=== PATIENT | female | born 1935 | race African-American/Black ===

== ENCOUNTER 2016-02-27 07:48 | Inpatient (IN) | payer OTHER ==
[2016-02-27] MEDS ORDERED: DUONEB (A & A) INH ONE (08:00)
[2016-02-27] MEDS ORDERED: SOLU-MEDROL IV ONE (08:00)
[2016-02-27 08:17] LABS: ALLEN TEST YES; BE -2.6 mmoll (-3.0-3.0); BLOOD TYPE ARTERIAL; DRAW SITE L RADIAL; METHB 1.2 % (0.0-1.5); O2(CT) 12.9 mL/dL (15.0-23.0); PCO2(98.6) 47 mmHg (35-45); PO2(98.6) 70 mmHg (60-100); SAMPLE BLOOD; SAO2 96.7 % (95.0-100.0); THB 9.8 g/dL (11.5-17.4); pH(98.6) 7.31 (7.35-7.45)
[2016-02-27 08:18] LABS: MODALITY ROOM AIR
--- NOTE | 2016-02-27 08:31 | PROVIDER DOCUMENTATION ---
HPI-Respiratory General - General Source: patient, EMS - History of Present Illness-Resp Quality of Pain: reports: none Severity in ED: reports: moderate Onset/Duration: reports: 3 days ago Timing: reports: still present, improving Context: reports: recent URI. denies: recent foreign travel, insect bite ( possible tick), recent chemotherapy, out of meds, sports/exercise, aspiration/ choking Exposure: reports: unknown cause. denies: allergen exposure Cough Quality/Degree: reports: moderate Episode Frequency: chronic episodes Current Respiratory Medication Therapy: Initiated A/A nebulizer Modifying Factors: improves with: albuterol nebulizer Associated Symptoms: reports: cough, shortness of breath, short of breath. denies: facial pain, fever/chills, flu-like symptoms, headache, sore throat Similar Symptoms Previously?: Yes Recently seen or treated by another doctor?: No <Janice Rodriguez - Last Filed: 02/27/16 08:25> <Luisa Loving - Last Filed: 02/27/16 10:49> - General Chief Complaint: Shortness of Breath Stated Complaint: SOB Time Seen by Provider: 02/27/16 07:48 Allergies/Adverse Reactions: Patient Allergies Allergy/AdvReac Type Severity Reaction Status Date / Time No Known Allergies Allergy Verified 02/14/16 11:13 Home Medications: Clonidine [Catapres] 0.1 mg PO BID 05/14/14 Escitalopram Oxalate 10 mg PO DAILY 05/14/14 Ipratropium/Albuterol Sulfate [Iprat-Albut 0.5-3(2.5) mg/3 ml] 1 dose INH 4XDAY PRN 05/14/14 Levothyroxine Sodium 88 mcg PO DAILY@0700 05/14/14 Cyanocobalamin (Vitamin B-12) [Vitamin B-12] 1,000 mcg PO DAILY 08/27/14 Folic Acid 1 mg PO QAM 08/27/14 Gabapentin 300 mg PO HS 08/27/14 Mesalamine D.r. [Asacol Hd] 800 mg PO TID@0900,1500,2100 08/27/14 SIMVAstatin [Zocor] 40 mg PO QHS 08/27/14 Metformin E.r. [Glucophage Xr] 500 mg PO DAILY@0800 04/06/15 Doxepin HCl [Silenor] 6 mg PO HS 07/28/15 Hydrocodone/Acetaminophen [Buford 10-325 Tablet] 1 tab PO TID PRN PRN 07/29/15 Hydrocortisone 2.5% Cream [Anusol-Hc Cream] 1 applic MI BID PRN 07/29/15 Tiotropium Rolla Inhaler [Spiriva] 18 mcg INH DAILY 07/29/15 Magnesium Oxide 500 mg PO DAILY 11/23/15 - History of Present Illness-Resp Nature of Presenting Problem: Pt reports SOB every morning recently, worsened this morning. Denies CP/F/C, but dry cough and wheezing. H/o COPD/CHF/CAD with stent X1 back to 6 years ago. DMII on insulin and a stroke paralyzed her R leg, pt has been bed-ridden. Per EMS, pt's SO2=99% on RA on their arrival, but she looks like was struggling form her breath. Breathing tx en route made her felt a lot better. (Janice Rodriguez) Review of Systems - Adult - REVIEW OF SYSTEMS - ADULT Constitutional: reports: no symptoms reported Eyes: reports: no symptoms reported Ears, Nose, Mouth & Throat: reports: no symptoms reported Cardiovascular: reports: see HPI, palpitations. denies: chest pain, heart murmur, irregular heart rate, orthopnea Respiratory: reports: see HPI, cough, dyspnea on exertion, shortness of breath, wheezing. denies: hemoptysis Gastrointestinal: reports: no symptoms reported Genitourinary: reports: no symptoms reported Musculoskeletal: reports: no symptoms reported Integumentary: reports: no symptoms reported Neurological: reports: no symptoms reported Psychiatric: reports: no symptoms reported All Other Systems: Reviewed and Negative <Janice Rodriguez - Last Filed: 02/27/16 08:25> Past History - Adult - PAST MEDICAL HISTORY-ADULT Major Childhood Illnesses: reports: denies history Cardiovascular: reports: CAD, CHF (last ECHO 08/10 with EF 55%), HTN, [place] Respiratory: reports: asthma, COPD, sleep apnea Gastrointestinal: reports: colitis (ulcerative), inflammatory bowel disease Obstetrical/Gynecological: reports: denies history Genitourinary: reports: denies history Musculoskeletal: reports: denies history Neurological: reports: CVA (right sided), stroke deficits (RIGHT SIDED) Psychiatric: reports: psychiatric problems Endocrine/Immune: reports: thyroid disorder, Diabetes Other Conditions: reports: cataract/glaucoma - PRIOR SURGERIES/PROCEDURES Surgical/Procedure History: reports: cardiac stent, hysterectomy, orthopedic ( extremity) (total knee replacement), other (breast biopsy, cataracts) - IMMUNIZATION STATUS Childhood Immunizations: See Nurse Assessment Flu Vaccine: See Nurse Assessment - FAMILY HISTORY Family History: reviewed, not pertinent <RodriguezJanice X - Last Filed: 02/27/16 08:25> Physical Exam-General - PHYSICAL EXAM-ADULT Initial Vital Signs Reviewed: Yes - CONSTITUTIONAL General Appearance: appears well, alert, no apparent distress - EYES Eyes: PERRL/EOMI, pink conjunctivae - HEAD, EARS, NOSE, MOUTH & THROAT HENMT: normocephalic/atraumatic, moist mucous membranes - NECK Neck: non-tender, full range of motion - RESPIRATORY Respiratory: chest non-tender, lungs clear, normal breath sounds, no pleuratic chest pain, decreased breath sounds, rhonchi, wheezing. negative: no respiratory distress, no accessory muscle use, accessory muscle use, crackles, rales, retractions, splinting, decreased rate - CARDIOVASCULAR Cardiovascular: normal peripheral pulses, regular rate, rhythm, no edema, no gallop, no JVD - GASTROINTESTINAL (ABDOMEN) Abdominal Exam: normal bowel sounds, non tender, soft, no organomegaly, no pulsatile mass - MUSCULOSKELETAL Back Exam: normal inspection, no CVA tenderness, no vertebral tenderness Extremity: normal range of motion, non-tender, normal gait, normal inspection - SKIN Integumentary: normal color, normal turgor, warm/dry - NEUROLOGIC Neurologic: other (R leg paralyzed from previous stroke) - PSYCHIATRIC Psych/Mental Status: normal mood/affect, normal thought content, normal thought process, oriented x 3 <Neil Rodriguezarielle X - Last Filed: 02/27/16 08:25> Progress <RodriguezJanice X - Last Filed: 02/27/16 08:25> - XRAY 1 XRAY Study: Chest XRAY Interpretation: normal - CONSULTS/PCP/HOSPITALIST Notification #1 *Consult/PCP/Hospitalist*: Dr. Romero Time Discussed: 10:46 Consult Disposition: Admit <Luisa Loving - Last Filed: 02/27/16 10:49> - PLAN OF CARE/RESULTS Progress/Plan/Lab Results: plan of care: labs, imaging, admit as inpatient Laboratory Tests 02/27/16 02/27/16 02/27/16 08:07 08:58 09:35 WBC 12.39 H RBC 3.96 L Hgb 10.1 L Hct 31.8 L MCV 80.3 L MCH 25.5 L MCHC 31.8 L RDW Std Deviation 15.2 H Plt Count 241 MPV 9.4 Immature Gran % (Auto) 0.2 Neut % (Auto) 76.9 H Lymph % (Auto) 12.9 L [place] % (Auto) 5.8 Eos % (Auto) 4.0 Baso % (Auto) 0.2 Immature Gran # (Auto) 0.02 Neut # 9.52 H Lymph # 1.60 [place] # 0.72 H Eos # 0.50 Baso # 0.03 PT INR PTT (Actin FS) Specimen Type ARTERIAL Sample Site L RADIAL pH 7.31 L pCO2 47 H pO2 70 HCO3 22.8 Base Excess -2.6 Oxyhemoglobin 93.4 L ABG O2 Sat (Calculated) 12.9 L ABG O2 Saturation 96.7 ABG Carboxyhemoglobin 2.20 ABG Methemoglobin 1.2 Brendan Test YES A-a O2 Difference 21.0 Total Hemoglobin 9.8 L Lactate 2.10 Blood Gas Modality ROOM AIR FiO2 % 21.0 Sodium Potassium Chloride Carbon Dioxide Anion Gap BUN Creatinine Estimated GFR/1.73 m2 BUN/Creatinine Ratio Glucose Calculated Osmolality Calcium Magnesium Total Bilirubin AST ALT Alkaline Phosphatase Creatine Kinase Troponin T [id number]-Gbgyxiwduvd Pept Total Protein Albumin Globulin Albumin/Globulin Ratio Urine Source CATH Urine Color YELLOW Urine Turbidity CLEAR Urine pH 5.5 Ur Specific [place] 1.018 Urine Protein 50 A Ur Glucose (Stick) NEGATIVE Ur Ketones (Stick) NEGATIVE Urine Blood NEGATIVE Urine Nitrite NEGATIVE Urine Bilirubin NEGATIVE Urobilinogen Dipstick NORMAL Urine Leukocytes NEGATIVE Urine WBC (Auto) <10 Urine RBC (Auto) <10 U Epithel Cells (Auto) <10 Urine Bacteria (Auto) 1+ 02/27/16 02/27/16 02/27/16 09:35 09:35 09:35 WBC RBC Hgb Hct MCV MCH MCHC RDW Std Deviation Plt Count MPV Immature Gran % (Auto) Neut % (Auto) Lymph % (Auto) [place] % (Auto) Eos % (Auto) Baso % (Auto) Immature Gran # (Auto) Neut # Lymph # [place] # Eos # Baso # PT 10.3 INR 0.97 PTT (Actin FS) 25.9 Specimen Type Sample Site pH pCO2 pO2 HCO3 Base Excess Oxyhemoglobin ABG O2 Sat (Calculated) ABG O2 Saturation ABG Carboxyhemoglobin ABG Methemoglobin Brendan Test A-a O2 Difference Total Hemoglobin Lactate Blood Gas Modality FiO2 % Sodium 135 L Potassium 5.3 H Chloride 99 Carbon Dioxide 22 L Anion Gap 14 BUN 32 H Creatinine 2.0 H Estimated GFR/1.73 m2 29 BUN/Creatinine Ratio 16 Glucose 172 H Calculated Osmolality 281 Calcium 9.2 Magnesium 2.1 Total Bilirubin 0.19 L AST 15 ALT 6 L Alkaline Phosphatase 81 Creatine Kinase 68 Troponin T Jli-M-Fquecoyrwsn Pept 371 Total Protein 7.3 Albumin 3.4 L Globulin 3.9 Albumin/Globulin Ratio 0.9 Urine Source Urine Color Urine Turbidity Urine pH Ur Specific [place] Urine Protein Ur Glucose (Stick) Ur Ketones (Stick) Urine Blood Urine Nitrite Urine Bilirubin Urobilinogen Dipstick Urine Leukocytes Urine WBC (Auto) Urine RBC (Auto) U Epithel Cells (Auto) Urine Bacteria (Auto) 02/27/16 09:35 WBC RBC Hgb Hct MCV MCH MCHC RDW Std Deviation Plt Count MPV Immature Gran % (Auto) Neut % (Auto) Lymph % (Auto) [place] % (Auto) Eos % (Auto) Baso % (Auto) Immature Gran # (Auto) Neut # Lymph # [place] # Eos # Baso # PT INR PTT (Actin FS) Specimen Type Sample Site pH pCO2 pO2 HCO3 Base Excess Oxyhemoglobin ABG O2 Sat (Calculated) ABG O2 Saturation ABG Carboxyhemoglobin ABG Methemoglobin Brendan Test A-a O2 Difference Total Hemoglobin Lactate Blood Gas Modality FiO2 % Sodium Potassium Chloride Carbon Dioxide Anion Gap BUN Creatinine Estimated GFR/1.73 m2 BUN/Creatinine Ratio Glucose Calculated Osmolality Calcium Magnesium Total Bilirubin AST ALT Alkaline Phosphatase Creatine Kinase Troponin T 0.082 Pcj-F-Ohyujdmqani Pept Total Protein Albumin Globulin Albumin/Globulin Ratio Urine Source Urine Color Urine Turbidity Urine pH Ur Specific [place] Urine Protein Ur Glucose (Stick) Ur Ketones (Stick) Urine Blood Urine Nitrite Urine Bilirubin Urobilinogen Dipstick Urine Leukocytes Urine WBC (Auto) Urine RBC (Auto) U Epithel Cells (Auto) Urine Bacteria (Auto) Orders Category Date Time Status Cardiac Monitoring DIRECTED Care 02/27/16 08:01 Active [place] Cath Insertion ORDERED Care 02/27/16 09:15 Active Saline Loc NOW Care 02/27/16 08:01 Active CHEST-PORTABLE [RAD] Stat Exams 02/27/16 08:00 Taken ABG [RESP] Routine Lab 02/27/16 08:07 Completed BLOOD CULTURE [BLDCUL] Stat Lab 02/27/16 09:35 Received CBC WITH ELECTRONIC DIFF [HEME] Stat Lab 02/27/16 09:35 Completed CK PROFILE [SP CHEM] Stat Lab 02/27/16 09:35 Completed COMPREHENSIVE METABOLIC PANEL [CHEM] Stat Lab 02/27/16 09:35 Completed MAGNESIUM [CHEM] Stat Lab 02/27/16 09:35 Completed PRO B-NATRIURETIC PEPTIDE Stat Lab 02/27/16 09:35 Completed PROTIME WITH INR [COAG] Stat Lab 02/27/16 09:35 Completed PTT [COAG] Stat Lab 02/27/16 09:35 Completed TROPONIN T Stat Lab 02/27/16 09:35 Completed UA NIMS W/REFLEX CULT [URINALYSIS] Stat Lab 02/27/16 08:58 Completed 0.9% Sodium Chloride Inj [Ns] 1,000 ml Med 02/27/16 10:43 Active IV 500 mls/hr Albuterol 2.5MG/Ipratrop 0.5MG [Duoneb (A & A)] Med 02/27/16 08:00 Discontinued 3 ml INH NOW ONE Methylprednisolone Sod Succ [Solu-Medrol] Med 02/27/16 08:00 Discontinued 125 mg IV NOW ONE Aerosol Treatments Routine Oth 02/27/16 08:02 Completed Aerosol Treatments Stat Oth 02/27/16 08:02 Completed EKG [EKG] Stat Ther 02/27/16 08:01 Ordered Vital Signs - 24 hr 02/27/16 02/27/16 07:59 08:16 Temperature 97.6 F Pulse Rate 102 H 103 H Respiratory 24 18 Rate Blood Pressure 134/81 O2 Sat by Pulse 100 95 Oximetry (Luisa Loving) Departure <Janice Rodriguez - Last Filed: 02/27/16 08:25> - Departure Time of Disposition Order: 10:44 Certified Medical Emergency: Emergent <Luisa Loving - Last Filed: 02/27/16 10:49> - Departure DIAGNOSIS: COPD with acute exacerbation, Hyperglycemia, Renal failure Disposition: ADMITTED INPATIENT 09 Condition: Stable Referrals: Ramo Mann MD [Primary Care Provider] - Physician Attestation
[2016-02-27 09:11] LABS: URINE CULTURE NEEDED? NO; URINE MICRO REVIEW NEEDED? NO; URINE SOURCE CATH
[2016-02-27 09:15] LABS: BILIRUBIN URINE NEGATIVE (NEGATIVE); BLOOD URINE NEGATIVE (NEGATIVE); COLOR YELLOW; GLUCOSE URINE NEGATIVE (NEGATIVE); LEUKOCYTES URINE NEGATIVE (NEGATIVE); NITRITE URINE NEGATIVE (NEGATIVE); PH URINE 5.5; PROTEIN URINE 50 mg/dL (NEGATIVE); SP GRAVITY URINE 1.018; TURBIDITY URINE CLEAR (CLEAR); UROBILINOGEN URINE NORMAL (NORMAL)
[2016-02-27 09:17] LABS: UR EPITHELIAL CELLS <10 /HPF (<10); URINE BACTERIA 1+ /HPF; URINE RBC <10 /HPF (<10); URINE WBC <10 /HPF (<10)
[2016-02-27 09:44] LABS: MANUAL DIFF NEEDED? NO
[2016-02-27 09:48] LABS: BASO% 0.2 % (0.0-0.8); HEMATOCRIT 31.8 % (37.0-47.0); HEMOGLOBIN 10.1 g/dL (12.0-16.0); IMM GRAN# 0.02 X1000 (0.0-0.04); IMM GRAN% 0.2 % (0.0-0.5); LYMPH% 12.9 % (20.5-51.1); MCH 25.5 PG (27-31); MCHC 31.8 g/dL (33-37); MCV 80.3 FL (81-99); MONO# 0.72 X1000 (0.11-0.59); MONO% 5.8 % (1.7-9.3); MPV 9.4 FL (7.4-10.4); NEUT% 76.9 % (42.2-75.2); PLT 241 X1000 (130-400); RBC 3.96 XMIL (4.2-5.4)
[2016-02-27 10:03] LABS: INR 0.97; PROTIME 10.3 Seconds (9.2-11.7); PTT 25.9 Seconds (22.0-36.0)
[2016-02-27 10:24] LABS: ALBUMIN 3.4 g/dL (3.5-5.0); CALCIUM 9.2 mg/dL (8.8-10.2); MAGNESIUM 2.1 mg/dL (1.5-2.7); POTASSIUM 5.3 mmol/L (3.5-5.1); TOTAL BILIRUBIN 0.19 mg/dL (0.20-1.00); TOTAL PROTEIN 7.3 g/dL (6.3-8.3)
[2016-02-27] MEDS ORDERED: NS 1,000 ML IV ONE (10:43)
--- NOTE | 2016-02-27 12:24 | Diag Imaging Result Document ---
PROCEDURE NAME: CHEST-PORTABLE - 02/27/2016 AP PORTABLE CHEST: TIME: 0945 hours. FINDINGS: There is no evidence of acute cardiac or pulmonary disease. There has been no significant change since 02/14/2016, considering differences in technique. IMPRESSION: No evidence of acute disease.
[2016-02-27] MEDS ORDERED: APRESOLINE IV ONE (13:10)
--- NOTE | 2016-02-27 13:13 | HISTORY AND PHYSICAL ---
CHIEF COMPLAINT: Shortness of breath. HISTORY OF PRESENT ILLNESS: Ms. Zafar is a very pleasant, 80-year-old female, with multiple admissions to the hospital for CHF exacerbation, COPD exacerbation and others presents today with 2 weeks of progressive shortness of breath. Symptoms began somewhat slow have progress over the past 2 weeks where she is having shortness of breath and wheezing at rest. She denies any overt chest pain. She has had no fever or chills. No upper respiratory congestion and no nasal congestion. Cough is described as dry and nonproductive. She was here 2 weeks ago and was discharged from the ER for the same. She returned today with a complaint of shortness of breath, workup in the ER was consistent with COPD exacerbation. Her chest x-ray did not show anything acute, she also had mild leukocytosis and mild respiratory acidosis per ABG. Of note, her creatinine was noted to be 2.0 which is a change from previous creatinines. It looks like her baseline is around 1.2. She denies any dysuria or flank pain. She is in a bed-bound and wheelchair-bound state secondary to previous strokes and right-sided hemiplegia. We are going to admit the patient now for COPD exacerbation. PAST MEDICAL HISTORY: 1. Chronic obstructive pulmonary disease, not on home O2. 2. Diastolic heart failure. EF 55-60% noted in June of this year. 3. Coronary artery disease. She has had a stent in the past. She has also had a heart catheterization this year which showed mild to moderate vessel disease which was not felt to be amenable to revascularization and medical management was recommended. 4. Hypertension. 5. Type 2 diabetes. 6. Hypothyroidism. 7. History of cerebrovascular disease with right-sided hemiplegia. 8. Obstructive sleep apnea. 9. Ulcerative colitis. PAST SURGICAL HISTORY: Hysterectomy, knee replacement, cataract surgery. SOCIAL HISTORY: Patient lives at home with her family. She does not smoke, drink or use drugs. FAMILY HISTORY: Noncontributory. REVIEW OF SYSTEMS: Ten point review of systems obtained and found to be negative with the exception of the HPI. ALLERGIES: No known drug allergies. HOME MEDICATIONS: Clonidine 0.1 mg b.i.d., vitamin B12 1000 mcg p.o. daily. Doxepin 6 mg at bedtime, citalopram 10 mg daily. Folic acid 1 mg p.o. a.m., Neurontin 300 mg at bedtime. [place] as needed. Anusol hydrocortisone b.i.d. as needed for hemorrhoidal pain. Albuterol/ipratropium mix 3 mL daily inhaled. Synthroid 88 mcg p.o. daily. Mag-Ox 500 mg daily. Asacol 800 mg t.i.d., metformin XR 500 mg daily, Zocor 40 mg at bedtime, Spiriva 18 mcg inhaled daily, Tylenol as needed, Norvasc 10 mg daily. Aspirin 81 mg daily. Lasix 40 mg daily. Mucinex 600 mg as needed. Lantus 30 units subcu a.m., Icar-C one b.i.d., isosorbide mononitrate ER 15 mg b.i.d. metoprolol- XL 50 mg b.i.d., Benicar 20 mg a.m., Prilosec 20 mg daily. PHYSICAL EXAMINATION: VITAL SIGNS: Blood pressure is 134/81, heart rate is 102, respiratory rate 24, O2 saturation 100% on room air. Temperature is 97.6 degrees. GENERAL: This is a chronically ill, elderly appearing 80-year-old female, lying in hospital bed. No acute distress. NEUROLOGIC: The patient is awake and alert. She is oriented. She has fairly significant right- sided weakness but she does follow commands. HEENT: Head is atraumatic and normocephalic. Her pupils are equal, round, reactive to light. Oral mucosa is moist. Trachea is midline. Neck is supple. CHEST: Diminished throughout with fairly extensive wheezes heard in both lung connors on inspiration and expiration. CARDIOVASCULAR: Regular rate and rhythm. S1-S2 is noted. No murmurs, gallops, clicks, or rubs. GASTROINTESTINAL: Soft, nondistended, nontender. Bowel sounds are positive. EXTREMITIES: No edema, clubbing or cyanosis. Pulses are palpable bilaterally. DIAGNOSTIC DATA: Chest x-ray does not show anything acute. EKG shows normal sinus rhythm without acute ST or T abnormalities. WBC 12.39, hemoglobin 10.1, hematocrit 31.8, platelet count 241,000. PT 10.3, INR 0.97, ABG on room air 7.31, CO2 47, O2 70. Lactate 2.1. Bicarbonate 22.8, sodium 135, potassium 5.3, chloride 99, CO2 22, anion gap 14, BUN 32, creatinine 2, glucose 172, bilirubin 0.19. Cardiac enzymes are negative. ProBNP 371, albumin 3.4. Urinalysis is negative for any acute process. ASSESSMENT AND PLAN: 1. Chronic obstructive pulmonary disease exacerbation: Patient will be admitted for standard COPD exacerbation including oxygen as needed, nebulizers, steroids, antibiotics and aggressive pulmonary toilet. We will monitor her oxygenation and vital signs closely. 2. Known coronary artery disease with diastolic congestive heart failure: She does not seem to be in congestive exacerbation at this point. We will continue the majority of her home medications being mindful of her elevated creatinine. We will monitor daily, I's and O's and daily weights, we will also rule out myocardial infarction with cardiac enzymes. She has recently had an echocardiogram done last month which showed EF of 55-60%. 3. Hypertension: Chronic and stable. Continue her non-nephrotoxic antihypertensive agents. 4. Acute kidney injury on chronic kidney disease: We will check urine electrolytes. Lightly hydrate being mindful of her congestive heart failure and withhold any nephrotoxic medications, we will continue to monitor her renal status daily and consult with Nephrology for get a renal ultrasound if no improvement within 24 hours. 5. Type 2 diabetes: We will withhold her oral antidiabetics, continue insulin and add pattern blood sugars, sliding scale insulin and check a hemoglobin A1c. 6. Hypothyroidism: Chronic and stable, we will check a thyroid function panel and continue her Synthroid. 7. History of cerebral vascular disease with right-sided weakness: Aware, chronic and overall stable. 8. History of ulcerative colitis: Chronic, this is stable and she is not in exacerbation at this point. 9. DVT prophylaxis will be provided with heparin given her renal failure. Further recommendations to follow. Dictated by TAMEKA Rockwell for Sanjay Romero MD
[2016-02-27] MEDS ORDERED: ANUSOL-HC CREAM PR PRN (13:53)
[2016-02-27] MEDS ORDERED: DUONEB (A & A) INH PRN (13:53)
[2016-02-27] MEDS: DUONEB (A & A) INH SCH ×4 (14:03→22:49)
[2016-02-27] MEDS ORDERED: NS 500 ML ONE (14:17)
[2016-02-27] MEDS: MUCINEX PO SCH ×2 (14:56→22:40)
[2016-02-27] MEDS: ROCEPHIN 1 GM/NS 50 ML IV SCH (14:56)
[2016-02-27] MEDS: HUMALOG DOSE (PARKWAY) SUBQ SCH ×2 (15:20→16:21)
[2016-02-27] MEDS ORDERED: NORVASC PO ONE (15:43)
[2016-02-27] MEDS ORDERED: LASIX PO SCH (15:45)
[2016-02-27] MEDS ORDERED: APRESOLINE IV PRN (15:46)
[2016-02-27 16:05] LABS: UR CREAT RANDOM 12.9 mg/dL (11-20)
[2016-02-27] MEDS: NORCO-10 PO PRN (17:17)
--- NOTE | 2016-02-27 17:54 | EKG Report ---
Test Performed on : 02/27/2016 3:57:31 PM Test Reason : irregular telemetry reading Blood Pressure : / mmHG Vent. Rate : 110 BPM Atrial Rate : 110 BPM P-R Int : 180 ms QRS Dur : 092 ms QT Int : 336 ms P-R-T Axes : 054 008 056 degrees QTc Int : 454 ms Sinus tachycardia. Otherwise normal ECG When compared with ECG of 14-FEB-2016 11:15, (Unconfirmed) No significant change was found Confirmed by Epi Wagoner MD ([id number]) on 02/29/2016 11:54:02 PM
[2016-02-27] MEDS: SOLU-MEDROL IV SCH (18:50)
[2016-02-27 21:30] LABS: HEMOGLOBIN A1C 7.6 % (4.8-6.0)
[2016-02-27 21:47] LABS: IRON SATURATION 13 %; TIBC 258 ug/dL; TOTAL IRON 33 ug/dL (49-151); UNBOUND IRON 225 ug/dL (112-346)
[2016-02-27 21:57] LABS: FREE T4 1.27 ng/dL (0.93-1.70)
[2016-02-27] MEDS: HEPARIN SUBQ SCH (22:40)
[2016-02-27] MEDS: ZOCOR PO SCH (22:40)
[2016-02-27] MEDS: ASACOL HD PO SCH (22:40)
[2016-02-27] MEDS: TOPROL XL PO SCH (22:40)
[2016-02-27] MEDS: ICAR-C PO SCH (22:40)
[2016-02-27] MEDS: NEURONTIN PO SCH (22:40)
[2016-02-27] MEDS: CATAPRES PO SCH (22:40)
[2016-02-27] MEDS: IMDUR PO SCH (22:40)
[2016-02-28] MEDS: PATIENT'S OWN MED PO SCH ×2 (01:06→21:27)
[2016-02-28] MEDS: HUMALOG DOSE (PARKWAY) SUBQ SCH ×5 (01:06→21:28)
[2016-02-28] MEDS: SOLU-MEDROL IV SCH ×5 (03:13→21:28)
[2016-02-28] MEDS: NORCO-10 PO PRN (03:13)
[2016-02-28] MEDS: DUONEB (A & A) INH SCH ×5 (03:37→21:51)
[2016-02-28] MEDS: PRILOSEC PO SCH (06:37)
[2016-02-28] MEDS: MUCINEX PO SCH ×3 (06:37→21:30)
[2016-02-28] MEDS: SYNTHROID PO SCH (06:38)
[2016-02-28 07:06] LABS: HEMATOCRIT 31.2 % (37.0-47.0); HEMOGLOBIN 9.7 g/dL (12.0-16.0); MCH 24.7 PG (27-31); MCHC 31.1 g/dL (33-37); MCV 79.6 FL (81-99); MPV 9.6 FL (7.4-10.4); RBC 3.92 XMIL (4.2-5.4)
[2016-02-28] MEDS: SPIRIVA INH SCH (07:15)
[2016-02-28 07:22] LABS: AGAP 11; BUN 29 mg/dL (8-22); CHLORIDE 99 mmol/L (98-107); COSMO 276; HDL 65 mg/dL (45-65); LDL 78 mg/dL; POTASSIUM 5.5 mmol/L (3.5-5.1); SODIUM 131 mmol/L (136-145); TCO2 22 mmol/L (25-35); TRIGLYCERIDES 67 mg/dL (35-135); VLDL 13 mg/dL
[2016-02-28] MEDS: ASPIRIN EC PO SCH (09:39)
[2016-02-28] MEDS: IMDUR PO SCH ×2 (09:39→21:29)
[2016-02-28] MEDS: HEPARIN SUBQ SCH ×2 (09:39→21:28)
[2016-02-28] MEDS: TOPROL XL PO SCH (09:39)
[2016-02-28] MEDS: NORVASC PO SCH (09:39)
[2016-02-28] MEDS: ASACOL HD PO SCH ×3 (09:39→21:29)
[2016-02-28] MEDS: LEXAPRO PO SCH (09:39)
[2016-02-28] MEDS: ICAR-C PO SCH ×2 (09:39→21:29)
[2016-02-28] MEDS: LANTUS INSULIN (PARKWAY) SUBQ SCH (09:39)
[2016-02-28] MEDS: CATAPRES PO SCH ×2 (09:40→21:30)
[2016-02-28] MEDS: FOLIC ACID PO SCH (09:40)
[2016-02-28] MEDS: VITAMIN B-12 PO SCH (09:40)
[2016-02-28] MEDS: ROBITUSSIN-AC PO PRN ×3 (11:45→21:27)
--- NOTE | 2016-02-28 15:18 | PROGRESS NOTE ---
DATE: 02/28/2016 SUBJECTIVE: The patient continues to cough. It is nonproductive. She denies any fever or chills or chest pain, chest pressure. OBJECTIVE: Vital Signs: Blood pressure is 153/83 with a heart rate of 91, respirations are 18, temperature is 98.2 degrees oral. Oxygen saturations are 99-100% on 2 L nasal cannula. Cardiovascular: Regular rate and rhythm. S1 and S2 appreciated. No rubs, murmurs, or gallops. Chest: She has diminished with expiatory wheezes heard throughout with no increased work of breathing noted. Gastrointestinal: Abdomen is soft, nontender, nondistended with bowel sounds in all 4 quadrants. Extremities: No clubbing, cyanosis, or edema. Pulses are palpable x4. Calves are nontender. Neurologic: She is alert and oriented. LABS: WBC is 7.6 with a hemoglobin 9.7, hematocrit 31.2, and platelets of 220,000. Sodium is 131, potassium 5.5 BUN 29, creatinine 1.4, with glucose ranging 136-30. ASSESSMENT AND PLAN: 1. Chronic obstructive pulmonary disease exacerbation. We will continue with her treatments. She does have diffuse wheezing throughout so we will not wean steroids today. We will give cough syrup. 2. Known Coronary artery disease with diastolic heart failure. We will continue with her regimen, monitor I Os. So far, troponins have been negative on multiple occasions. 3. Acute kidney injury in the setting of chronic kidney disease. It looks like for about the last year creatinine has been average 1.2-1.4. It was 2 on admission, is 1.4 today. We will continue to follow. 4. Diabetes type 2. We will continue pattern blood glucose with sliding scale insulin. Her hemoglobin A1c was 7.6. 5. Hypothyroid. TSH was 0.81 with a free T4 of 1.27. We will continue her Synthroid. 6. History of cerebrovascular accident with right-sided weakness. Aware. 7. History of ulcerative colitis. Aware. 8. For DVT prophylaxis, we will continue heparin and for GI prophylaxis, we will do Protonix, as she does have some diffuse wheezing. We will hold her Lopressor at present. Dictated by TAMEKA Ritchie for Jordin Goldberg MD
[2016-02-28] MEDS: ROCEPHIN 1 GM/NS 50 ML IV SCH ×2 (15:27→18:20)
[2016-02-28] MEDS: ZOCOR PO SCH (21:29)
[2016-02-28] MEDS: RESTORIL PO PRN (21:29)
[2016-02-28] MEDS: NEURONTIN PO SCH (21:30)
[2016-02-29] MEDS: DUONEB (A & A) INH SCH ×7 (00:02→22:47)
[2016-02-29] MEDS: SOLU-MEDROL IV SCH ×3 (04:29→16:53)
[2016-02-29] MEDS: SYNTHROID PO SCH (06:16)
[2016-02-29] MEDS: MUCINEX PO SCH ×3 (06:16→21:00)
[2016-02-29] MEDS: PRILOSEC PO SCH (06:16)
[2016-02-29] MEDS: HUMALOG DOSE (PARKWAY) SUBQ SCH ×4 (06:20→20:57)
[2016-02-29 07:08] LABS: HEMATOCRIT 31.6 % (37.0-47.0); MCH 24.9 PG (27-31); MCHC 31.6 g/dL (33-37); MCV 78.6 FL (81-99); MPV 9.7 FL (7.4-10.4); RBC 4.02 XMIL (4.2-5.4)
[2016-02-29 07:11] LABS: CALCIUM 9.1 mg/dL (8.8-10.2); POTASSIUM 5.7 mmol/L (3.5-5.1)
[2016-02-29 07:58] LABS: PTT PL 29.2 Seconds (22.6-43.9)
[2016-02-29] MEDS: SPIRIVA INH SCH (08:10)
--- NOTE | 2016-02-29 08:13 | CONSULTATION ---
DATE OF CONSULTATION: 02/28/2016 Patient seen and examined in the morning. Continues to have significant shortness of breath and is tachypneic even in her bed. She complains of cough and wheezing. ATTENDING PHYSICIAN: Jordin Goldberg MD. REASON FOR CONSULTATION: Increased respiratory distress and COPD exacerbation. HISTORY OF PRESENTING ILLNESS: Ms. Zafar is a 80-year-old female with history of CHF, COPD. Was apparently in her usual state of health until 2-3 weeks ago when she started having worsening shortness of breath associated with wheezing. No history of fevers, chills or cough noted. Patient was treated with antibiotics and steroids and was sent to home with COPD exacerbation. Patient denies any history of smoking, but has history of secondhand smoke exposure. She mentions that she was evaluated by her primary care physician, and had PFT in the past and was diagnosed with COPD. PAST MEDICAL HISTORY: 1. COPD, likely severe, not on home medication. 2. Morbid obesity. 3. Diastolic heart failure. 4. Coronary artery disease. 5. Ulcerative colitis. PAST SURGICAL HISTORY: Hysterectomy and knee replacement, cataract surgery. SOCIAL HISTORY: Patient lives at home with her family. She does not have any history of smoking, alcohol or drug use. FAMILY HISTORY: Noncontributory. ALLERGIES: No known drug allergies. LABS: White count on admission was 12,000, now 7.6. Hemoglobin 9.7, hematocrit is 31, coagulation within normal limits. ABG showed pH of 7.39, pCO2 of 47, pO2 of 70. Chemistry: Sodium 151, potassium 5.3, chloride 99, BUN 29, creatinine 1.4, glucose between 137 to 240s. Troponin was 0.045. PHYSICAL EXAM: General: Obese individual in moderate respiratory distress. Heart: S1-S2 heard. Lungs: Coarse rhonchi present bilaterally. Abdomen: Soft. Extremities: Trace edema. ASSESSMENT: 1. Acute bronchitis, likely chronic obstructive pulmonary disease with exacerbation. 2. Hypoxic respiratory failure. 3. Obstructive sleep apnea, untreated. 4. Coronary artery disease. PLAN: 1. Patient noted to be in mild respiratory distress on exertion. Continue current antibiotics and use as needed pain medication. 2. Hypoxic respiratory failure, secondary to COPD as well as obstructive sleep apnea. Continue oxygen to keep saturation above 88-90%. 3. Obstructive sleep apnea. Is currently untreated. Thank you.
[2016-02-29 08:16] LABS: INR 1.01 (0.86-1.15); PROTIME 13.6 Seconds (12.1-15.5)
[2016-02-29] MEDS: HEPARIN SUBQ SCH ×3 (08:37→21:17)
[2016-02-29] MEDS: ASACOL HD PO SCH ×4 (08:37→21:16)
[2016-02-29] MEDS: LANTUS INSULIN (PARKWAY) SUBQ SCH (08:38)
[2016-02-29] MEDS: LEXAPRO PO SCH (08:38)
[2016-02-29] MEDS: ICAR-C PO SCH ×3 (08:38→21:16)
[2016-02-29] MEDS: VITAMIN B-12 PO SCH (08:38)
[2016-02-29] MEDS: NORVASC PO SCH (08:39)
[2016-02-29] MEDS: FOLIC ACID PO SCH (08:39)
[2016-02-29] MEDS: IMDUR PO SCH ×3 (08:39→21:16)
[2016-02-29] MEDS: ASPIRIN EC PO SCH (08:39)
[2016-02-29] MEDS: ROBITUSSIN-AC PO PRN ×3 (08:41→19:32)
[2016-02-29] MEDS: TYLENOL PO PRN ×2 (08:42→08:49)
[2016-02-29] MEDS: CATAPRES PO SCH ×3 (08:52→21:17)
[2016-02-29] MEDS: ROCEPHIN 1 GM/NS 50 ML IV SCH (13:49)
--- NOTE | 2016-02-29 14:38 | PROGRESS NOTE ---
DATE: 02/29/2016 SUBJECTIVE: The patient's breathing has improved. She feels "fair". OBJECTIVE: Blood pressure 175/99, heart rate of 89, respiratory rate 20, temperature 97.4 degrees, 100% on 2 L.Cardiovascular: Regular rate and rhythm. Pulmonary: Bilateral breath sounds. Clear to auscultation. GI: Soft, nontender, nondistended. Bowel sounds are positive. LABORATORY DATA: White count 8, hemoglobin and hematocrit is 10 and 31, platelets of 223,000. Chemistry, sodium 128, potassium 5.7, BUN and creatinine of 31 and 1.3, glucose is 248, I think her sodium has been that low and just like steadily decreased. PROBLEM LIST: 1. Chronic obstructive pulmonary disease exacerbation. She is on q.4 breathing treatments alone and Omnicef. Her wheezing has improved substantially from yesterday so I am going to decrease her steroid load. 2. Hypertension, appears to be stable. 3. Diabetes. Continue regular medications. 4. Crohn's colitis also appears to be stabilizing. DISPOSITION: I think she is slowly improving. I anticipate she could possibly go tomorrow. The only major issue is hyponatremia which I do not have a great explanation for, she is on an SSRI but she is not really getting any diuretics. Will check urine sodium, urine creatinine and follow, we can give some gentle hydration.
[2016-02-29] MEDS: NEURONTIN PO SCH ×2 (19:31→21:16)
[2016-02-29] MEDS: ZOCOR PO SCH ×2 (19:32→21:16)
[2016-02-29] MEDS: PATIENT'S OWN MED PO SCH (21:01)
--- NOTE | 2016-02-29 21:33 | PROGRESS NOTE ---
DATE: 02/29/2016 SUBJECTIVE: Patient is seen and examined this afternoon. Shortness of breath and wheezing have improved to a certain extent. Continues to require oxygen. No fevers. No significant wheezing. OBJECTIVE: Blood pressure 175/99, heart rate 89, respiratory rate 20, temperature 97 degrees, oxygen saturation is 100% on 2 L.Cardiac: Regular rate and rhythm. Lungs: Decreased breath sounds bilaterally. No wheezing or rhonchi heard. Abdomen: Soft. Extremities: No edema. 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 LABORATORY DATA: White count 8000. Hemoglobin 10. Hematocrit 31. Platelets 223,000. Sodium 128, potassium 5.7, BUN 31, creatinine 1.3. Blood sugar has been elevated 248. IMAGING: No new imaging. ASSESSMENT: 1. The patient has asthma versus chronic obstructive pulmonary disease exacerbation. 2. Hypoxic respiratory failure. 3. Morbid obesity, possible sleep apnea. 4. Diabetes, uncontrolled. 5. Hyponatremia suspicious for possible fluid overload versus medication related. PLAN: 1. Patient continues to high-dose steroids. Is currently on 60 mg q.8. We will decrease to 60 mg q.8 since patient has clinically improved. Continue nebulization treatments and antibiotics. We will need re-evaluation for ventilatory defect after discharge as an outpatient since patient has no history of smoking. It is unclear at this point if she has non-smoker COPD versus asthma. Recommend incentive spirometry and out of bed to chair. 2. Hypoxic respiratory failure. Wean off oxygen if saturation is above 88% to 90%. 3. Morbid obesity. 4. History of obstructive sleep apnea which is untreated. Recommend evaluation and treatment of sleep apnea as an outpatient. 5. Urine electrolytes have been ordered by primary care.
[2016-03-01] MEDS: SOLU-MEDROL IV SCH ×4 (00:14→17:43)
[2016-03-01] MEDS: DUONEB (A & A) INH SCH ×6 (03:27→22:44)
[2016-03-01] MEDS: MUCINEX PO SCH ×3 (05:03→21:20)
[2016-03-01] MEDS: HUMALOG DOSE (PARKWAY) SUBQ SCH ×4 (06:22→20:18)
[2016-03-01] MEDS: PRILOSEC PO SCH (06:22)
[2016-03-01] MEDS: SYNTHROID PO SCH (06:22)
[2016-03-01 06:41] LABS: HEMATOCRIT 32.2 % (37.0-47.0); HEMOGLOBIN 10.1 g/dL (12.0-16.0); MCH 24.6 PG (27-31); MCHC 31.4 g/dL (33-37); MCV 78.3 FL (81-99); MPV 9.8 FL (7.4-10.4); RBC 4.11 XMIL (4.2-5.4)
[2016-03-01 06:58] LABS: POTASSIUM 5.1 mmol/L (3.5-5.1)
[2016-03-01] MEDS: SPIRIVA INH SCH (07:59)
[2016-03-01] MEDS: IMDUR PO SCH ×2 (10:52→20:11)
[2016-03-01] MEDS: NORVASC PO SCH (10:53)
[2016-03-01] MEDS: LEXAPRO PO SCH (10:53)
[2016-03-01] MEDS: ASPIRIN EC PO SCH (10:53)
[2016-03-01] MEDS: VITAMIN B-12 PO SCH (10:54)
[2016-03-01] MEDS: CATAPRES PO SCH ×2 (10:54→20:11)
[2016-03-01] MEDS: LANTUS INSULIN (PARKWAY) SUBQ SCH (10:55)
[2016-03-01] MEDS: FOLIC ACID PO SCH (10:55)
[2016-03-01] MEDS: ICAR-C PO SCH ×2 (10:55→20:11)
[2016-03-01] MEDS: HEPARIN SUBQ SCH ×2 (10:55→20:12)
[2016-03-01] MEDS: ASACOL HD PO SCH ×3 (11:45→20:10)
[2016-03-01] MEDS: NORCO-10 PO PRN (11:45)
[2016-03-01] MEDS: ROBITUSSIN-AC PO PRN ×2 (11:46→20:12)
[2016-03-01] MEDS: ROCEPHIN 1 GM/NS 50 ML IV SCH (13:33)
--- NOTE | 2016-03-01 18:13 | DISCHARGE SUMMARY ---
ADMISSION DATE: 02/27/2016 DISCHARGE DATE: 03/01/2016 DISCHARGE DIAGNOSES: 1. Chronic obstructive pulmonary disease exacerbation. 2. Hypoxic respiratory failure. 3. Morbid obesity. 4. Uncontrolled diabetes. 5. Hyponatremia. 6. Renal insufficiency. CONSULTATIONS: Nilda Roman M.D., Pulmonary. HOSPITAL COURSE: Briefly, this is a 80-year-old female presenting with shortness of breath. She has known diastolic heart failure and COPD. She was placed on IV steroids, breathing treatments. She had diastolic heart failure. Echocardiogram showed normal EF. She had acute kidney injury by report with a creatinine of 2. She was placed on some IV fluids and clinically improved. By the 1st she had slowly clinically improved. Steroids were not weaned because she had increasing wheezing. Her creatinine stabilized between 1.2-1.4. Dr. Roman was consulted and adjusted some of her medications, recommended evaluation of her sleep apnea. Patient is essentially bedbound. She really does not get up to do much. She does not ambulate. On the day of discharge, her wheezing has resolved. Her sodium has stabilized up to 130. Her white count has decreased to 7.6. BUN and creatinine are 36 and 1.3 which is close to baseline. She was 96% on room air. We could not evaluate for home oxygen. DISCHARGE MEDICATIONS: 1. Atrovent q.i.d. 2. DuoNebs q.6. 3. Catapres 0.1 b.i.d. 4. Lexapro 20 daily. 5. Synthroid 88 daily. 6. Asacol 800 t.i.d. 7. Vitamin B12 daily. 8. Folic acid daily. 9. Gabapentin 300 at night. 10. Zocor 40 daily. 11. Glucophage XR 500 daily. With her renal insufficiency I think we are going to have to stop that. 12. Anusol cream as needed. 13. [place] Silenor 6 daily. 14. Spiriva 18 mcg daily. 15. Mag-Ox 500 daily. I am going to hold that. 16. Prilosec 20 daily. 17. Aspirin 80 mg daily. 18. Icar-C 1 p.o. b.i.d. 19. Isordil 15 b.i.d. 20. Lasix 40 daily. 21. Mucinex 600 q.8. 22. Norvasc 10 daily. 23. Benicar 20 daily. 24. Toprol-XL 50 b.i.d. 25. Lantus 13 units daily. 26. She has been on Solu-Medrol 60 q.8. I think we will do a prednisone taper on her. She has also been on Omnicef 300 p.o. b.i.d. for 7 days. DISCHARGE CONDITION: Stable. FOLLOWUP: We will set up nocturnal home O2 testing and evaluation for sleep apnea. Follow up with Dr. Roman concerning that. TOTAL TIME SPENT ON DISCHARGE: 35 minutes.
[2016-03-01] MEDS: ZOCOR PO SCH (20:11)
[2016-03-01] MEDS: NEURONTIN PO SCH (20:11)
[2016-03-01] MEDS: RESTORIL PO PRN (21:25)
[2016-03-01] MEDS: PATIENT'S OWN MED PO SCH (21:33)
[2016-03-02] MEDS: SOLU-MEDROL IV SCH
--- NOTE | 2016-03-02 00:26 | PROGRESS NOTE ---
DATE: 03/01/2016 SUBJECTIVE: The patient seen and examined this afternoon. No acute events overnight. Shortness of breath is much better, able to tolerate diet. PHYSICAL EXAM: Lungs: Decreased air entry bilaterally. No wheezing or crackles. Abdomen: Soft. Extremities: No edema. ASSISTANT PROFESSOR OF BIOLOGY: No confusion. LABS: White count is 7.6, hemoglobin 10.1, hematocrit 32. No new blood gases. Chemistry: Sodium 132, potassium 5.1, chloride 96, CO2 of 23, BUN 36, creatinine 1.2. ASSESSMENT AND PLAN: 1. Acute on chronic hypoxic hypercapnic respiratory failure. 2. History of asthma/COPD exacerbation. 3. Hypoxic respiratory failure. 4. Morbid obesity. 5. Untreated sleep apnea. PLAN: Patient clinically improved significantly. I discussed with Dr. Penot. Zheng from pulmonary standpoint to be discharged on low-dose steroid taper. Recommend outpatient PFTs, and sleep study for evaluation of asthma, versus COPD, as well as, management of untreated sleep apnea. Discussed with the patient, as well as her family.
[2016-03-02] MEDS: MUCINEX PO SCH (05:10)
[2016-03-02] MEDS: PRILOSEC PO SCH (06:19)
[2016-03-02] MEDS: SYNTHROID PO SCH (06:19)
[2016-03-02] MEDS: HUMALOG DOSE (PARKWAY) SUBQ SCH (06:19)
[2016-03-02] MEDS: DUONEB (A & A) INH SCH ×2 (06:22→07:20)
[2016-03-02] MEDS: SPIRIVA INH SCH (07:20)
[2016-03-02 07:34] VITALS: BP 154/83
--- NOTE | 2016-03-02 21:22 | PROGRESS NOTE ---
DATE: 03/02/2016 SUBJECTIVE: The patient did not go home last night secondary to not having a ride. She is denying any current exacerbation of her COPD or shortness of breath. Denies any chest pain, palpitations. Denies any GI or issues. OBJECTIVE: Vital Signs: She is afebrile. Vital signs are stable. She is awake, alert, oriented. Neck: Supple. CARDIOVASCULAR: Regular rate. Chest: Relatively clear. Abdomen: Soft. LABORATORY: Reviewed. ASSESSMENT: 1. Chronic obstructive pulmonary disease with exacerbation improved. 2. Hypoxic respiratory failure. 3. Morbid obesity. 4. Hyponatremia, stable. PLAN: We will hopefully continue with discharge later on this afternoon. No other changes were made.
== END 2016-03-02 09:20 | disposition home health service (06) | DRG 190 ==
LOC: EDBD → ED 07:48 → P.MEDSURG 12:35
PROVIDERS: ATTEND Internal Medicine
DX: J44.1 Chronic obstructive pulmonary disease with (acute) exacerbation (principal); J96.21 Acute and chronic respiratory failure with hypoxia; J96.22 Acute and chronic respiratory failure with hypercapnia; N17.9 Acute kidney failure, unspecified; I50.32 Chronic diastolic (congestive) heart failure; I13.0 Hypertensive heart and chronic kidney disease with heart failure and stage 1 through stage 4 chronic kidney disease, or unspecified chronic kidney disease; K50.90 Crohn's disease, unspecified, without complications; E87.1 Hypo-osmolality and hyponatremia; I69.951 Hemiplegia and hemiparesis following unspecified cerebrovascular disease affecting right dominant side; Z68.41 Body mass index [BMI] 40.0-44.9, adult; E11.22 Type 2 diabetes mellitus with diabetic chronic kidney disease; J45.909 Unspecified asthma, uncomplicated; E66.01 Morbid (severe) obesity due to excess calories; E11.65 Type 2 diabetes mellitus with hyperglycemia; N18.9 Chronic kidney disease, unspecified; I25.10 Atherosclerotic heart disease of native coronary artery without angina pectoris; G47.33 Obstructive sleep apnea (adult) (pediatric); E03.9 Hypothyroidism, unspecified; H40.9 Unspecified glaucoma; Z96.652 Presence of left artificial knee joint; Z79.84 Long term (current) use of oral hypoglycemic drugs; Z79.899 Other long term (current) drug therapy; Z95.5 Presence of coronary angioplasty implant and graft; Z79.4 Long term (current) use of insulin; Z74.01 Bed confinement status; Z79.82 Long term (current) use of aspirin
CPT/HCPCS: 36415; 71010; 80048; 80053; 80061; 81001; 82550; 82570; 82607; 82746; 82805; 82948; 83036; 83540; 83550; 83735; 83880; 83935; 84300; 84439; 84443; 84484; 85025; 85027; 85610; 85730; 87040; 93005; 94640; 94761; 94799; 96374; 96375; J0360; J0696; J1644; J1815; J2930; J7030; J7040

== ENCOUNTER 2016-08-28 09:24 | Observation (INO) ==
[2016-08-28] MEDS ORDERED: NS 1,000 ML IV PRN (09:31)
[2016-08-28 09:52] LABS: OCCULT BLOOD 1 POSITIVE (NEGATIVE)
[2016-08-28 11:07] LABS: MANUAL DIFF NEEDED? NO
[2016-08-28 11:08] LABS: BE 1.1 mmoll (-3.0-3.0); BLOOD TYPE ARTERIAL; DRAW SITE R RADIAL; METHB 1.1 % (0.0-1.5); O2(CT) 12.1 mL/dL (15.0-23.0); PCO2(98.6) 36 mmHg (35-45); PO2(98.6) 134 mmHg (60-100); SAMPLE BLOOD; SAO2 99.1 % (95.0-100.0); THB 8.7 g/dL (11.5-17.4); pH(98.6) 7.45 (7.35-7.45)
[2016-08-28 11:09] LABS: ALLEN TEST YES; MODALITY ROOM AIR
[2016-08-28 11:39] LABS: ALBUMIN 3.2 g/dL (3.5-5.0); CALCIUM 8.7 mg/dL (8.8-10.2); POTASSIUM 3.8 mmol/L (3.5-5.1); TOTAL BILIRUBIN 0.2 mg/dL (0.20-1.00); TOTAL PROTEIN 6.9 g/dL (6.3-8.3)
[2016-08-28 12:04] LABS: BASO% 0.4 % (0.0-0.8); EOS# 0.27 X1000 (0.0-0.7); EOS% 4.8 % (0.0-10.0); HEMATOCRIT 26.9 % (37.0-47.0); HEMOGLOBIN 8.7 g/dL (12.0-16.0); IMM GRAN# 0.01 X1000 (0.0-0.04); IMM GRAN% 0.2 % (0.0-0.5); LYMPH# 1.94 X1000 (1.2-3.4); LYMPH% 34.8 % (20.5-51.1); MCH 26.4 PG (27-31); MCHC 32.3 g/dL (33-37); MCV 81.8 FL (81-99); MONO# 0.51 X1000 (0.11-0.59); MONO% 9.2 % (1.7-9.3); MPV 9.6 FL (7.4-10.4); NEUT% 50.6 % (42.2-75.2); PLT 207 X1000 (130-400); RBC 3.29 XMIL (4.2-5.4)
[2016-08-28 12:24] LABS: INR 0.98 (0.86-1.15); PROTIME 13.3 Seconds (12.1-15.5)
[2016-08-28 12:25] LABS: PTT PL 34.5 Seconds (22.6-43.9)
[2016-08-28 12:59] LABS: IRON SATURATION 16 %; TIBC 246 ug/dL; TOTAL IRON 40 ug/dL (49-151); UNBOUND IRON 206 ug/dL (112-346)
[2016-08-28] MEDS ORDERED: NS 1,000 ML IV ONE (13:48)
--- NOTE | 2016-08-28 18:09 | HISTORY AND PHYSICAL ---
CHIEF COMPLAINT: Rectal bleeding. HISTORY OF PRESENT ILLNESS: This is a 80-year-old female with a history of CHF, COPD and ulcerative colitis. She presented to the emergency room after having a bowel movement with blood in it this morning. She is unaware of any prior black or bloody bowel movements. She did state that she felt like her ulcerative colitis has been acting and she has had some abdominal discomfort through the day. She denied any nausea or vomiting, any fever or chills. Reportedly she had a large bowel movement in the emergency room that had no red blood seen, although this did guaiac-positive. She was given IV hydration and admitted for further evaluation and treatment. PAST MEDICAL HISTORY: COPD, ulcerative colitis, congestive heart failure, diastolic heart failure with the last EF being 60-65% in December 2015. Coronary artery disease. CVA with right-sided hemiplegia. Diabetes type 2. Hypertension. Hypothyroid. PAST SURGICAL HISTORY: Hysterectomy. Knee replacement. Cataract surgery. SOCIAL HISTORY: She denies alcohol, tobacco, or illicit drug use. REVIEW OF SYSTEMS: A 14 point review of systems is discussed with patient with pertinent positives being stated in the HPI. She denied chest pain, palpitations, syncope, dizziness, cough, fever, chills, shortness of breath, PND, orthopnea, nausea, vomiting, constipation, black or bloody vomitus, any hematuria, dysuria, frequency, urgency. PHYSICAL EXAMINATION: GENERAL: This is a 80-year-old female, who is lying in the bed, in no distress. VITAL SIGNS: Blood pressure is 138/72 with a heart rate of 68, respirations are 18, temperature is 97 degrees with room air saturation of 100%. HEENT: Head is normocephalic, atraumatic. Pupils are equal, round, react to light. EOMs are intact. NECK: Supple with trachea midline. CARDIOVASCULAR: Regular rate and rhythm. S1 and S2. No rubs, murmurs, gallops or clicks. PULMONARY: Breath sounds are diminished. Chest rises and falls symmetrically with respiration. No increased work of breathing noted. GASTROINTESTINAL: Abdomen is soft, nontender, nondistended. Bowel sounds in all 4 quadrants. EXTREMITIES: No clubbing, cyanosis. She does have some pretibial edema which is chronic. Calves are nontender. Pulses are palpable x4. NEUROLOGIC: She is alert and oriented x3. DIAGNOSTICS: WBC is 5.5 with hemoglobin 8.7, hematocrit 26.9, and platelets of 207,000. INR is 0.98, sodium is 129, potassium is 3.8, BUN is 21, creatinine 1.4 with a glucose of 317. Stool occult blood is positive. ASSESSMENT AND PLAN: 1. Gastrointestinal bleed. 2. Anemia of chronic disease. 3. Ulcerative colitis. 4. Diabetes mellitus type 2. 5. Hyponatremia, which appears to be chronic. 6. Hypothyroid. 7. Diastolic heart failure. 8. Chronic kidney disease with a baseline creatinine of 1.1-1.4. PLAN: She will be admitted to the hospital. She is receiving a unit of packed cells now. We will give Lasix after this unit. We will recheck hemoglobin and hematocrit 4 hours later. She does have anemia of chronic disease for which she is on Icar C. We will continue this. We will Hemoccult stools. We will gently hydrate. We will give pattern blood glucose with sliding scale insulin. We will identify her home medications and continue as appropriate. Further treatments pending hospital course. Dictated by TAMEKA Ritchie for Jim Carreon MD cc: TAMEKA Rithcie MD
[2016-08-28] MEDS: ATIVAN IV PRN (20:44)
[2016-08-28] MEDS: TYLENOL PO PRN (20:45)
[2016-08-28] MEDS: PROTONIX PO SCH (20:45)
[2016-08-29] MEDS: ATIVAN IV PRN (01:04)
[2016-08-29] MEDS: TYLENOL PO PRN (03:18)
[2016-08-29 06:24] LABS: HEMATOCRIT 29.2 % (37.0-47.0); HEMOGLOBIN 9.3 g/dL (12.0-16.0); MCHC 31.8 g/dL (33-37); MCV 81.6 FL (81-99); MPV 10.3 FL (7.4-10.4); RBC 3.58 XMIL (4.2-5.4)
[2016-08-29] MEDS: PROTONIX PO SCH (06:25)
[2016-08-29 06:47] LABS: ALBUMIN 2.8 g/dL (3.5-5.0); CALCIUM 8.6 mg/dL (8.8-10.2); POTASSIUM 3.8 mmol/L (3.5-5.1); TOTAL BILIRUBIN 0.2 mg/dL (0.20-1.00); TOTAL PROTEIN 6.7 g/dL (6.3-8.3)
[2016-08-29 10:59] VITALS: BP 166/71
--- NOTE | 2016-08-29 19:10 | DISCHARGE SUMMARY ---
ADMISSION DATE: 08/28/2016 DISCHARGE DATE: 08/29/2016 PRIMARY CARE PHYSICIAN: Dr. Ramo Mann ADMISSION DIAGNOSES: 1. Gastrointestinal bleed. 2. Anemia of chronic disease. 3. Ulcerative colitis. 4. Diabetes type 2. 5. Hyponatremia which appears to be chronic. 6. Hypothyroidism. 7. Diastolic heart failure. DISCHARGE DIAGNOSES: 1. Gastrointestinal bleed. 2. Anemia of chronic disease. 3. Ulcerative colitis. 4. Diabetes type 2. 5. Hyponatremia which appears to be chronic. 6. Hypothyroidism. 7. Diastolic heart failure. SUMMARY OF FINDINGS: A 80-year-old female who presented to the emergency room after having a bowel movement with blood in it and was unaware of any black or bloody bowel movements prior. States that she felt like it was her ulcerative colitis that had been acting, and had some abdominal discomfort throughout the day. Denied any nausea, vomiting or fevers or chills. She has had a large bowel movement in the emergency room that had no red blood seen although it was guaiac-positive. She was admitted. Given IV hydration. She was given 1 unit of packed red blood cells. Her hemoglobin and hematocrit this morning and was 9.3 and 29.2. She has had a diabetic diet and tolerated that well. No further blood noted from her rectum. It is noted that while her brother was visiting her yesterday he had a large hemorrhagic stroke and was taken to the emergency room and soon . So, it is felt now that with his passing that the patient can safely be discharged home. She will need a GI workup outpatient with a colonoscopy/EGD but this can be worked up outpatient and she can be discharged home today. DISCHARGE MEDICATIONS: She will continue the Protonix 40 mg p.o. b.i.d., Norvasc 10 mg p.o. daily, clonidine 0.1 mg p.o. b.i.d., vitamin B12 1000 mcg p.o. daily, doxepin 6 mg p.o. at bedtime. Citalopram 10 mg p.o. daily, folic acid 1 mg p.o. q.a.m., Lasix 40 mg p.o. daily, gabapentin 300 mg 4 times daily. Merrill 10 mg 1 p.o. t.i.d. p.r.n., hydrocortisone 2.5% cream per rectally b.i.d. p.r.n., Lantus 30 units subcutaneous at bedtime, DuoNebs 4 times daily as needed, Icar C 1 p.o. b.i.d., Imdur 30 mg p.o. b.i.d., levothyroxine 88 mcg p.o. daily. Lorazepam 1 mg p.o. b.i.d. p.r.n., Asacol 800 mg p.o. t.i.d., Reglan 10 mg p.o. daily, Metoprolol 50 mg p.o. daily. olmesartan medoxomil 40 mg p.o. q.a.m., prednisone 10 mg p.o. daily, simvastatin 40 mg p.o. at bedtime, spironolactone 25 mg p.o. daily p.r.n. and Spiriva 18 mcg inhalation daily. We will discontinue her aspirin at this time until she has her GI workup. DISPOSITION: It is felt that she can be discharged home. FOLLOW UP: With her primary care physician in 1 week and then have him refer her for her outpatient GI workup. TIME SPENT AT DISCHARGE: Thirty-five minutes. Dictated by TAMEKA Garcia for Jim Carreon MD cc: TAMEKA Garcia MD Wayne E. Thomas, MD
--- NOTE | 2016-09-12 20:57 | PROVIDER DOCUMENTATION ---
This chart was entered by Marly Andrews Scribe, acting as scribe for Epi Wagoner MD. HPI-Abdominal Pain/GI Problem - General Chief Complaint: Rectal Bleeding Stated Complaint: rectal bleeding Time Seen by Provider: 08/28/16 09:34 Source: patient Allergies/Adverse Reactions: Patient Allergies Allergy/AdvReac Type Severity Reaction Status Date / Time No Known Allergies Allergy Verified 04/02/16 16:13 Home Medications: Home Medication List Medication Instructions Recorded Confirmed Last Taken Type Clonidine [Catapres] 0.1 mg PO BID 05/14/14 08/11/16 08/11/16 09:00 History 0.1 MG Escitalopram Oxalate 10 mg PO DAILY 05/14/14 08/11/16 08/11/16 09:00 History 10 MG Ipratropium/Albuterol Sulfate 1 dose INH 4XDAY PRN 05/14/14 08/11/16 08/11/16 09 :00 History [Iprat-Albut 0.5-3(2.5) mg/3 ml] 1 DOSE Levothyroxine Sodium 88 mcg PO DAILY@0700 05/14/14 08/11/16 08/11/16 09:00 History 88 MCG Cyanocobalamin (Vitamin B-12) 1,000 mcg PO DAILY 08/27/14 08/11/16 08/11/16 09: 00 History [Vitamin B-12] 1000 MCG Folic Acid 1 mg PO QAM 08/27/14 08/11/16 08/11/16 09:00 History 1 MG Gabapentin 300 mg PO HS 08/27/14 08/11/16 08/11/16 09:00 History 300 MG Mesalamine D.r. [Asacol Hd] 800 mg PO TID@0900,1500,2100 08/27/14 08/11/1608/11 09:00 History 800 MG SIMVAstatin [Zocor] 40 mg PO QHS 08/27/14 02/27/16 08/10/16 20:00 History 40MG Doxepin HCl [Silenor] 6 mg PO HS 07/28/15 08/11/16 08/11/16 09:00 History 6 MG Hydrocodone/Acetaminophen [[place] 1 tab PO TID PRN PRN 07/29/15 08/11/16 09:00 History 10-325 Tablet] 1 TAB Hydrocortisone 2.5% Cream 1 applic PA BID PRN 07/29/15 08/11/16 08/11/16 09:00 History [Anusol-Hc Cream] 1 APPLIC Tiotropium [place] Inhaler 18 mcg INH DAILY 07/29/15 08/11/16 08/11/16 09:00 History [Spiriva] 18 MCG Amlodipine [Norvasc] 10 mg PO DAILY #30 tablet 09/27/15 08/11/16 08/11/16 09:00 Rx 10 MG Aspirin EC 81 mg PO QAM #30 tablet 09/27/15 08/11/16 08/11/16 09:00 Rx 81 MG Furosemide [Lasix] 40 mg PO DAILY #30 tablet 09/27/15 08/11/16 08/11/16 09:00 Rx 40 MG Iron Carbonyl/Ascorbic Acid 1 each PO BID #60 tablet 09/27/15 08/11/16 08/11/16 09:00 Rx [Icar-C] 1 EACH Isosorbide Mononitrate E.r. [Imdur] 15 mg PO BID #0 09/27/15 08/11/16 08/11/16 09:00 Rx 15 MG Metoprolol Succinate E.r. [Toprol 50 mg PO BID #60 tablet 09/27/15 08/11/16 09:00 Rx Xl] 50 MG Olmesartan Medoxomil [Benicar] 20 mg PO QAM #0 09/27/15 08/11/16 08/11/16 09: 00 Rx 20 MG CefDINIR [Omnicef] 300 mg PO BID #14 capsule 03/01/16 08/11/16 08/11/16 09:00 Rx 300 MG Prednisone 10 mg PO DAILY #30 tablet 03/01/16 08/11/16 08/11/16 09:00 Rx 10 MG Ciprofloxacin HCl [Cipro] 500 mg PO BID #14 tablet 04/02/16 08/11/16 08/11/16 09 :00 Rx 500 MG Insulin Glargine [Lantus] 30 unit SUBQ HS 08/11/16 08/11/16 08/10/16 20:00 History 20 UNITS - History of Present Illness-ABD Nature of Presenting Problems: Pt is 80 y/o F presents to the ED via EMS for rectal bleeding. Pt states noticed blood with stool this am. Pt states she is on blood thinner. Pt denies N and V. Pt states mild generalized abdominal pain. Abdominal Pain Onset Location: reports: generalized abdomen Pain Radiation: reports: no radiation Quality of Pain: reports: aching Severity in ED: reports: mild Onset/Duration: reports: this morning Timing: reports: still present Activities at Onset: reports: light activity Exposure to sick contacts?: No Modifying Factors: improves with: nothing Associated Symptoms: reports: other (rectal bleeding). denies: anxiety, arm pain, back/neck pain, chest pain, constipation, cough, diaphoresis, diarrhea, dizziness, EENT symptoms, fatigue, fever/chills, genitourinary problems, headaches, heartburn, joint pain, loss of appetite, malaise, muscle aches, sinus congestion/drainage, nausea, rash, seizure, shortness of breath, sensory/ motor loss, pain with inspiration, swelling/mass in abdomen, syncope, vomiting, weakness, trouble walking Last BM: this morning Dark Stools Present?: reports: bright red blood Rectal Bleeding: reports: blood streaks on stool Rectal Pain: reports: none Emesis Description: reports: none Bruising or Bleeding Gums?: No Similar Symptoms Previously?: Yes Recently seen or treated by another doctor?: No Review of Systems - Adult - REVIEW OF SYSTEMS - ADULT Constitutional: reports: no symptoms reported Eyes: reports: no symptoms reported Ears, Nose, Mouth & Throat: reports: no symptoms reported Cardiovascular: reports: no symptoms reported Respiratory: reports: no symptoms reported Gastrointestinal: reports: abdominal pain (generalized), rectal bleeding. denies: diarrhea, nausea, vomiting Genitourinary: reports: no symptoms reported Musculoskeletal: reports: no symptoms reported Integumentary: reports: no symptoms reported Neurological: reports: no symptoms reported Psychiatric: reports: no symptoms reported Endocrine: reports: no symptoms reported Hematologic/Lymphatic: reports: no symptoms reported Allergic/Immunologic: reports: no symptoms reported All Other Systems: Reviewed and Negative Past History - Adult - PAST MEDICAL HISTORY-ADULT Review of Records: reports: Nursing Assessment Review, Medications Reviewed, Social history reviewed & non-contributory. Major Childhood Illnesses: reports: denies history Cardiovascular: reports: CAD, CHF (last ECHO 08/10 with EF 55%), HTN, [place] Respiratory: reports: asthma, COPD, sleep apnea Gastrointestinal: reports: colitis (ulcerative), inflammatory bowel disease Obstetrical/Gynecological: reports: denies history Genitourinary: reports: kidney disease Musculoskeletal: reports: denies history Neurological: reports: CVA (right sided), stroke deficits (RIGHT SIDED) Psychiatric: reports: psychiatric problems Endocrine/Immune: reports: thyroid disorder, Diabetes Other Conditions: reports: cataract/glaucoma - PRIOR SURGERIES/PROCEDURES Surgical/Procedure History: reports: cardiac stent, hysterectomy, orthopedic ( extremity) (total knee replacement), other (breast biopsy, cataracts) - IMMUNIZATION STATUS Childhood Immunizations: See Nurse Assessment Flu Vaccine: See Nurse Assessment - FAMILY HISTORY Family History: reviewed, not pertinent - SOCIAL HISTORY Smoking: denies Substance Use: denies Living Situation: family Physical Exam-General - PHYSICAL EXAM-ADULT Initial Vital Signs Reviewed: Yes - CONSTITUTIONAL General Appearance: appears well, alert, no apparent distress - EYES Eyes: PERRL/EOMI, pink conjunctivae - HEAD, EARS, NOSE, MOUTH & THROAT HENMT: normocephalic/atraumatic, moist mucous membranes, normal ENT inspection - NECK Neck: non-tender, full range of motion, supple, normal inspection - RESPIRATORY Respiratory: chest non-tender, lungs clear, normal breath sounds - CARDIOVASCULAR Cardiovascular: normal peripheral pulses, regular rate, rhythm - GASTROINTESTINAL (ABDOMEN) Abdominal Exam: normal bowel sounds, soft, tenderness (generalized) - LYMPHATIC Lymphatic: no adenopathy - MUSCULOSKELETAL Back Exam: normal inspection Extremity: normal range of motion, non-tender. negative: erythema, swelling, tenderness - SKIN Integumentary: normal color, normal turgor, warm/dry - NEUROLOGIC Neurologic: grossly normal - PSYCHIATRIC Psych/Mental Status: normal mood/affect, oriented x 3 Progress - PLAN OF CARE/RESULTS Progress/Plan/Lab Results: Vital Signs - 8 hr 08/28/16 09:25 Pulse Rate 79 Respiratory Rate 20 Blood Pressure 191/93 O2 Sat by Pulse Oximetry 97 Orders Category Date Time Status Saline Loc DIRECTED Care 08/28/16 09:32 Active CBC WITH ELECTRONIC DIFF [HEME] Stat Lab 08/28/16 09:32 Ordered COMPREHENSIVE METABOLIC PANEL [CHEM] Stat Lab 08/28/16 09:32 Ordered OCCULT BLOOD NON-FECES PL Stat Lab 08/28/16 09:32 Uncollected OCCULT BLOOD SCREEN STOOL PL Stat Lab 08/28/16 09:32 Uncollected PROTIME WITH INR PL [COAG] Stat Lab 08/28/16 09:[address] [COAG] Stat Lab 08/28/16 09:32 Ordered TYPE & SCREEN [BBK] Stat Lab 08/28/16 09:32 Ordered 0.9% Sodium Chloride Inj [Ns] 1,000 ml Med 08/28/16 09:31 Active IV 125 mls/hr Result Diagrams: 08/28/16 11:57 08/28/16 11:00 - CONSULTS/PCP/HOSPITALIST Notification #1 *Consult/PCP/Hospitalist*: Hospitalist Time Discussed: 12:30 Reason/Comments: Dr. Wagoner consults with Dr. Carreon about admit of Pt Consult Disposition: Admit Departure - Departure Date of Disposition Decision: 08/28/16 Time of Disposition Decision: 12:30 DIAGNOSIS: GI bleed, Anemia Disposition: ADMITTED INPATIENT 09 Certified Medical Emergency: Emergent Condition: Stable Referrals and Follow-Ups: Ramo Mann MD [Primary Care Provider] - Call for Appoint. -1 week - Critical Care Note This patient required my direct & personal management of CC.: No This chart was documented by the indicated scribe, (Marly Andrews, Chirag) and accurately reflects the services I performed and decisions made by me, Epi Wagoner MD, as attested by the provider's signature.
== END 2016-08-29 11:16 | disposition home or self-care (01) ==
LOC: P.MEDSURG 09:24 → P.ED 09:24
PROVIDERS: ATTEND Family Medicine

== ENCOUNTER 2016-09-06 00:20 | Inpatient (IN) ==
[2016-09-06 01:20] LABS: MANUAL DIFF NEEDED? NO
[2016-09-06 01:26] LABS: BASO% 0.5 % (0.0-0.8); EOS% 4.9 % (0.0-10.0); HEMATOCRIT 30.3 % (37.0-47.0); HEMOGLOBIN 9.5 g/dL (12.0-16.0); IMM GRAN# 0.01 X1000 (0.0-0.04); IMM GRAN% 0.2 % (0.0-0.5); LYMPH# 1.68 X1000 (1.2-3.4); LYMPH% 27.2 % (20.5-51.1); MCH 25.9 PG (27-31); MCHC 31.4 g/dL (33-37); MCV 82.6 FL (81-99); MONO# 0.58 X1000 (0.11-0.59); MONO% 9.4 % (1.7-9.3); MPV 9.8 FL (7.4-10.4); NEUT% 57.8 % (42.2-75.2); PLT 203 X1000 (130-400); RBC 3.67 XMIL (4.2-5.4)
[2016-09-06 02:12] LABS: HEMOGLOBIN A1C 8.3 % (4.8-6.0)
[2016-09-06 02:14] LABS: ALBUMIN 3.2 g/dL (3.5-5.0); CALCIUM 9.2 mg/dL (8.8-10.2); POTASSIUM 3.1 mmol/L (3.5-5.1); TOTAL BILIRUBIN 0.2 mg/dL (0.20-1.00); TOTAL PROTEIN 6.7 g/dL (6.3-8.3)
[2016-09-06 02:41] LABS: CK INDEX 0.9 (0.0-2.5); CK-MB 2.04 ng/mL (0.0-5.0)
[2016-09-06] MEDS ORDERED: NS 1,000 ML IV ONE (02:44)
[2016-09-06] MEDS ORDERED: KLOR-CON PO ONE (02:49)
[2016-09-06] MEDS ORDERED: SYNTHROID PO ONE (02:51)
[2016-09-06] MEDS ORDERED: LOPRESSOR PO ONE (02:53)
[2016-09-06] MEDS ORDERED: NS 1,000 ML IV SCH (07:53)
[2016-09-06] MEDS ORDERED: DULCOLAX PR PRN (07:53)
[2016-09-06] MEDS ORDERED: PERICOLACE PO PRN (07:53)
[2016-09-06] MEDS: VITAMIN B-12 PO SCH (09:01)
[2016-09-06] MEDS: NORVASC PO SCH (09:02)
[2016-09-06] MEDS: NEURONTIN PO SCH ×4 (09:02→20:36)
[2016-09-06] MEDS: LASIX PO SCH (09:02)
[2016-09-06] MEDS: FOLIC ACID PO SCH (09:02)
[2016-09-06] MEDS: ICAR-C PO SCH (09:02)
[2016-09-06] MEDS: IMDUR PO SCH ×2 (09:02→20:37)
[2016-09-06] MEDS: CELEXA PO SCH (09:02)
[2016-09-06] MEDS: COREG PO SCH (09:02)
[2016-09-06] MEDS: CARAFATE PO SCH ×4 (09:03→20:36)
--- NOTE | 2016-09-06 13:04 | Diag Imaging Result Doc PS360 ---
EXAM: CHEST-PORTABLE HISTORY: intermediate placement TECHNIQUE: Erect AP portable at 1235 COMMENT: The appearance of the chest has not changed significantly since 07/20/2016. Inspiration is somewhat suboptimal. IMPRESSION: Stable chest. Electronically signed by Harmeet Robledo 09/06/2016 1:01 PM
--- NOTE | 2016-09-06 14:11 | HISTORY AND PHYSICAL ---
CHIEF COMPLAINT: Hypoglycemia. HISTORY OF PRESENT ILLNESS: This is a 80-year-old, -Malagasy female with a history of diastolic heart failure, coronary artery disease, diabetes mellitus, and COPD. She presented to the emergency room via EMS after she was found by the patient's grandson not acting like herself, and she had a blood sugar of 49. According to the chart on EMS arrival, the patient was altered. She was given oral glucose as well as an amp of D50 and, on arrival to the emergency room, she was awake, alert, and oriented. PAST MEDICAL HISTORY: COPD, ulcerative colitis, congestive heart failure diastolic with the last EF being 60%-65% in 12/2015. Coronary artery disease, CVA with right-sided hemiplegia, diabetes type 2, hypertension, and hypothyroid. PAST SURGICAL HISTORY: Hysterectomy, knee replacement, and cataract surgery. SOCIAL HISTORY: She denies alcohol, tobacco, or illicit drug use. ALLERGIES: No known drug allergies. HOME MEDICATIONS: 1. Zocor 40 mg at bedtime. 2. Carafate 1 g 4 times a day. 3. Lorazepam 1 mg b.i.d. 4. Benicar 40 q.a.m. 5. Protonix 40 mg b.i.d. 6. Gabapentin 300 four times a day. 7. Imdur 30 b.i.d. 8. Levothyroxine 88 mics daily. 9. Norvasc 10 mg daily. 10. Clonidine 0.1 b.i.d. 11. Folic acid 1 mg q.a.m. 12. Lasix 40 mg daily. 13. Icar-C one daily. 14. Reglan 10 mg at bedtime. 15. Celexa 10 mg daily. 16. Coreg 6.25 daily. 17. Demadex 20 mg daily as needed. 18. Biscolax 1 b.i.d. p.r.n. REVIEW OF SYSTEMS: A 14- point review of systems is discussed with the patient with pertinent positives being stated in the HPI. She denied chest pain, palpitations, dizziness, syncope, nausea, vomiting, diarrhea, constipation, cough, fever, chills, PND, orthopnea hematuria, dysuria, frequency urgency. PHYSICAL EXAMINATION: GENERAL: This is a 80-year-old -Malagasy female, who is sitting up in the bed in no distress. VITAL SIGNS: Blood pressure is 142/72 with a heart rate of 64, respirations are 18, temperature is 97.6 degrees oral with oxygen saturations of 98%-100% on 3 L nasal cannula. Cardiovascular. HEENT: Head is normocephalic, atraumatic. Pupils equal, round, react to light. EOMs are intact. Sclerae icteric. Mucous membranes are moist. NECK: Supple with trachea midline. CARDIOVASCULAR: Regular rate and rhythm. S1 and S2 appreciated. PULMONARY: Breath sounds are diminished. Chest rises and falls symmetrically with respiration. No increased work of breathing noted. GASTROINTESTINAL: Abdomen is soft, nontender, nondistended with bowel sounds in all 4 quadrants. NEUROLOGIC: She is alert and oriented x3. EXTREMITIES: No clubbing, cyanosis. She does have some pretibial edema which is chronic. Calves are nontender and pulses are palpable x4. DIAGNOSTICS: WBC is 6.18 with a hemoglobin of 9.5, hematocrit 30.3 and platelets of 203,000. Sodium is 135, potassium 3.1. BUN 32, creatinine 1.9 with a glucose of 61. TSH is 3.48. ASSESSMENT AND PLAN: 1. Hypoglycemia. We will obtain q.4 hour blood sugars. 2. Hypokalemia. 3. Diabetes mellitus, type 2. 4. Ulcerative colitis. 5. Hypothyroid. 6. Anemia of chronic disease. 7. Chronic kidney disease with a baseline creatinine of 1.1-1.4. 8. Diastolic heart failure with the last ejection fraction of 66% in 12/2015. PLAN: She will be admitted to the hospital and placed on telemetry. We will monitor blood sugars. We will identify her home medications and continue as appropriate. Further treatments pending hospital course. Dictated by TAMEKA Ritchie for Jim Carreon MD cc: TAMEKA Ritchie MD
[2016-09-06] MEDS: REGLAN PO SCH (20:36)
[2016-09-06] MEDS: ZOCOR PO SCH (20:36)
[2016-09-06] MEDS: PROTONIX PO SCH (20:37)
[2016-09-07] MEDS: SYNTHROID PO SCH (06:13)
[2016-09-07] MEDS: PROTONIX PO SCH ×2 (06:13→20:46)
--- NOTE | 2016-09-07 08:52 | PROGRESS NOTE ---
DATE: 09/07/2016 SUBJECTIVE: Patient notes that she is feeling better. She is still weak and tired, fatigued but denies any low blood sugars recently. OBJECTIVE: Vital signs: Reviewed. Temp 98 degrees, pulse 85, respiratory rate 18, BP 138/73, saturation 100% on 3 L, will continue to wean. HEENT: Normocephalic, atraumatic. VERA. Neck: Supple. CV: Regular rate. Chest: Clear. Abdomen: Soft. Extremities: INCOMPLETE REPORT--DICTATION ENDS HERE. cc: Jmi Carreon MD
--- NOTE | 2016-09-07 08:53 | PROGRESS NOTE ---
DATE: 09/07/2016 SUBJECTIVE: The patient notes that she is feeling a little bit better. She is still weak, tired and fatigued. Denies any chest pain, palpitations. Denies any GI or issues. Notes that her blood sugar has been better. OBJECTIVE: Vital Signs Reviewed: Temperature 98 degrees, pulse 85, respiratory rate 18, BP 138/73, satting 100% on 3 L. General: Patient is awake and alert. She is currently in no real respiratory distress. She is lying flat in the bed. HEENT: Normocephalic, atraumatic. VERA. Neck: Supple. CV: Regular rate. Chest: Relatively clear. Abdomen: Soft, obese, nondistended. Extremities: Moves all extremities. Neurologic: No focal changes. Skin: Warm and dry. No rashes. LABS: No current labs today. Blood sugar is currently 204. ASSESSMENT: 1. Hypoglycemia, improved. 2. Hypokalemia, resolved. 3. Diabetes type 2. 4. Ulcerative colitis. 5. Hypothyroidism. 6. Anemia of chronic disease. 7. Chronic kidney disease with baseline of 1.1, 1.4, currently with acute change. 8. Adult failure to thrive. PLAN: We will continue patient's current treatment in the hospital. Her blood sugars have increased nicely. Certainly expect poor appetite at home is what contributed to her hypoglycemic episode. We will continue to follow. Further orders as needed. Most likely will need rehab. cc: Jim Carreon MD
[2016-09-07] MEDS: COREG PO SCH (09:39)
[2016-09-07] MEDS: CELEXA PO SCH (09:39)
[2016-09-07] MEDS: NEURONTIN PO SCH ×4 (09:39→20:46)
[2016-09-07] MEDS: LASIX PO SCH (09:39)
[2016-09-07] MEDS: FOLIC ACID PO SCH (09:39)
[2016-09-07] MEDS: CARAFATE PO SCH ×4 (09:40→20:46)
[2016-09-07] MEDS: NORVASC PO SCH (09:40)
[2016-09-07] MEDS: VITAMIN B-12 PO SCH (09:40)
[2016-09-07] MEDS: ICAR-C PO SCH (09:40)
[2016-09-07] MEDS: IMDUR PO SCH ×2 (09:40→20:46)
[2016-09-07] MEDS: ZOCOR PO SCH (20:46)
[2016-09-07] MEDS: REGLAN PO SCH (20:46)
[2016-09-07] MEDS: ATIVAN PO PRN (21:40)
[2016-09-08 05:20] LABS: HEMATOCRIT 28.9 % (37.0-47.0); HEMOGLOBIN 9.1 g/dL (12.0-16.0); MCH 26.1 PG (27-31); MCHC 31.5 g/dL (33-37); MCV 82.8 FL (81-99); MPV 10.5 FL (7.4-10.4); RBC 3.49 XMIL (4.2-5.4)
[2016-09-08 05:48] LABS: ALBUMIN 3.2 g/dL (3.5-5.0); CALCIUM 8.9 mg/dL (8.8-10.2); MAGNESIUM 1.5 mg/dL (1.5-2.7); TOTAL BILIRUBIN 0.2 mg/dL (0.20-1.00); TOTAL PROTEIN 6.8 g/dL (6.3-8.3)
[2016-09-08] MEDS: CARAFATE PO SCH ×4 (06:35→20:34)
[2016-09-08] MEDS: PROTONIX PO SCH ×2 (06:35→20:34)
[2016-09-08] MEDS: SYNTHROID PO SCH (06:35)
--- NOTE | 2016-09-08 08:28 | PROGRESS NOTE ---
DATE: 09/08/2016 SUBJECTIVE: Patient without any new complaints. She does complain of tooth and gum pain which she has had off and on for several months. Denies any chest pain or palpitations. Denies any fevers or chills. Denies any GI or issues. OBJECTIVE: Vital signs: Temperature 97, pulse 91, respiratory rate 18, blood pressure 155/63, saturating 99% on room air. General: The patient is awake, alert, currently in no respiratory distress. Notes that she is starting to eat better although does state that she frequently does not eat secondary to her gum pain. HEENT: Normocephalic, atraumatic. PERRL. Neck: Supple. Cardiovascular: Regular rate. Chest: Relatively clear. Abdomen: Soft. Extremities: Moves all extremities. Neurologic: No focal changes. ASSESSMENT: 1. Gingivitis. Will add Augmentin. 2. Diabetes with recent hypoglycemia, improving. Will add Glucophage 500 twice a day and follow. 3. Adult failure to thrive. The patient certainly needs rehab. Will continue to await bed placement. 4. Hypoglycemia, resolved. 5. Hypokalemia, resolved. Currently 4.0. 6. Hypothyroidism, stable. 7. Ulcerative colitis, stable. 8. Chronic kidney disease. She is back to her baseline kidney function at 1.4 to 1.5. PLAN: 1. Will continue to await bed placement. 2. Will discontinue telemetry at this point. 3. Will follow. cc: Jim Carreon MD
[2016-09-08] MEDS: IMDUR PO SCH ×2 (10:03→20:34)
[2016-09-08] MEDS: NEURONTIN PO SCH ×4 (10:03→20:34)
[2016-09-08] MEDS: NORVASC PO SCH (10:03)
[2016-09-08] MEDS: ICAR-C PO SCH (10:03)
[2016-09-08] MEDS: AUGMENTIN PO SCH ×2 (10:03→20:34)
[2016-09-08] MEDS: VITAMIN B-12 PO SCH (10:03)
[2016-09-08] MEDS: FOLIC ACID PO SCH (10:03)
[2016-09-08] MEDS: LASIX PO SCH (10:04)
[2016-09-08] MEDS: CELEXA PO SCH (10:04)
[2016-09-08] MEDS: COREG PO SCH (10:04)
[2016-09-08] MEDS: GLUCOPHAGE PO SCH ×2 (10:06→17:54)
[2016-09-08] MEDS: REGLAN PO SCH (20:33)
[2016-09-08] MEDS: ZOCOR PO SCH (20:33)
[2016-09-08] MEDS: ATIVAN PO PRN (20:34)
[2016-09-09] MEDS: SYNTHROID PO SCH (06:19)
[2016-09-09] MEDS: PROTONIX PO SCH (06:19)
[2016-09-09] MEDS: CARAFATE PO SCH ×3 (06:19→11:16)
[2016-09-09] MEDS: COREG PO SCH (08:25)
[2016-09-09] MEDS: VITAMIN B-12 PO SCH (08:25)
[2016-09-09] MEDS: AUGMENTIN PO SCH (08:25)
[2016-09-09] MEDS: CELEXA PO SCH (08:25)
[2016-09-09] MEDS: FOLIC ACID PO SCH (08:25)
[2016-09-09] MEDS: NEURONTIN PO SCH ×2 (08:25→12:46)
[2016-09-09] MEDS: NORVASC PO SCH (08:25)
[2016-09-09] MEDS: GLUCOPHAGE PO SCH (08:26)
[2016-09-09] MEDS: ICAR-C PO SCH (08:26)
[2016-09-09] MEDS: LASIX PO SCH (08:26)
[2016-09-09] MEDS: IMDUR PO SCH (08:26)
--- NOTE | 2016-09-09 11:26 | DISCHARGE SUMMARY ---
ADMISSION DATE: 09/06/2016 DISCHARGE DATE: 09/09/2016 DIAGNOSES: 1. Diabetes with recent hypoglycemia, improving. 2. Hypoglycemia, resolved. 3. Hypokalemia, resolved. 4. Hypothyroidism, stable. 5. Ulcerative colitis, stable. 6. Anemia of chronic disease. 7. History of diastolic heart failure with the last ejection fraction 66% in December 2015. 8. Chronic kidney disease with a baseline creatinine of 1.1 to 1.4. RADIOLOGY: Chest x-ray 09/06/2016 revealed a stable chest as compared to 07/20/2016. HOSPITAL COURSE: Ms. Zafar presented to the emergency room after being found altered. She was found have a blood sugar of 49, which was treated with oral glucose as well as D 50. Once blood sugar increased, her mental status cleared and she returned to her baseline. It is most likely that poor appetite contributed to her hypoglycemic episode. Adult failure to thrive. DISCHARGE PHYSICAL EXAMINATION: Cardiovascular: Regular rate and rhythm. S1 and S2 appreciated. Pulmonary: Breath sounds are clear with no increased work of breathing noted. Gastrointestinal: Abdomen is soft, nontender, nondistended with bowel sounds in all 4 quadrants. Musculoskeletal: Moves all his extremities at random. Extremities: No clubbing, cyanosis, or edema. Pulses are palpable x4. DISCHARGE MEDICATIONS: 1. Zocor 40 mg at bedtime. 2. Carafate 1 g p.o. before meals and at bedtime. 3. Ativan 1 mg p.o. b.i.d. as needed. 4. Benicar 40 mg q.a.m. 5. Protonix 40 mg b.i.d. 6. Gabapentin 300 mg four times a day. 7. Imdur 30 mg b.i.d. 8. Levothyroxine 88 mcg daily. 9. Norvasc 10 mg daily. 10. Icar C one daily. 11. Lasix 40 mg daily. 12. Folic acid 1 mg daily. 13. Reglan 10 mg at bedtime. 14. Celexa 10 mg daily. 15. Carvedilol 6.25 daily. 16. Biscolax one suppository b.i.d. p.r.n. 17. Vitamin B 12 1000 mcg daily. 18. Augmentin 875 mg q. 12 hours times four days. DISCHARGE ACTIVITY: As tolerated per PT and facility policy. DISCHARGE DIET: Diabetic with supplements every meal. DISCHARGE DISPOSITION: Ms. Zafar is being discharged to rehab via EMS transport in stable condition. TIME SPENT ON DISCHARGE: This is a greater than 30 minute discharge. Dictated by TAMEKA Ritchie for Jim Carreon MD cc: TAMEKA Ritchie MD
[2016-09-09 12:40] VITALS: BP 161/62
--- NOTE | 2016-09-18 16:28 | PROVIDER DOCUMENTATION ---
This chart was entered by Speedy Maldonado Scribe, acting as scribe for Epi Wagoner MD. HPI-General Adult - General Chief Complaint: Low Blood Sugar Stated Complaint: hypoglycemia Time Seen by Provider: 09/06/16 00:34 Source: patient Allergies/Adverse Reactions: Patient Allergies Allergy/AdvReac Type Severity Reaction Status Date / Time No Known Allergies Allergy Verified 04/02/16 16:13 Home Medications: Home Medication List Medication Instructions Recorded Confirmed Last Taken Type Clonidine [Catapres] 0.1 mg PO BID 05/14/14 08/28/16 08/11/16 09:00 History 0.1 MG Escitalopram Oxalate 10 mg PO DAILY 05/14/14 08/28/16 08/11/16 09:00 History 10 MG Ipratropium/Albuterol Sulfate 1 dose INH 4XDAY PRN 05/14/14 08/11/16 08/11/16 09 :00 History [Iprat-Albut 0.5-3(2.5) mg/3 ml] 1 DOSE Levothyroxine Sodium 88 mcg PO DAILY@0700 05/14/14 08/28/16 08/11/16 09:00 History 88 MCG Cyanocobalamin (Vitamin B-12) 1,000 mcg PO DAILY 08/27/14 08/11/16 08/11/16 09: 00 History [Vitamin B-12] 1000 MCG Folic Acid 1 mg PO QAM 08/27/14 08/11/16 08/11/16 09:00 History 1 MG Gabapentin 300 mg PO 4XDAY 08/27/14 08/28/16 08/11/16 09:00 History 300 MG Mesalamine D.r. [Asacol Hd] 800 mg PO TID@0900,1500,2100 08/27/14 08/11/1608/11 09:00 History 800 MG SIMVAstatin [Zocor] 40 mg PO QHS 08/27/14 08/28/16 08/10/16 20:00 History 40MG Doxepin HCl [Silenor] 6 mg PO HS 07/28/15 08/11/16 08/11/16 09:00 History 6 MG Hydrocodone/Acetaminophen [[place] 1 tab PO TID PRN PRN 07/29/15 08/11/16 09:00 History 10-325 Tablet] 1 TAB Hydrocortisone 2.5% Cream 1 applic NM BID PRN 07/29/15 08/11/16 08/11/16 09:00 History [Anusol-Hc Cream] 1 APPLIC Tiotropium [place] Inhaler 18 mcg INH DAILY 07/29/15 08/11/16 08/11/16 09:00 History [Spiriva] 18 MCG Amlodipine [Norvasc] 10 mg PO DAILY #30 tablet 09/27/15 08/28/16 08/11/16 09:00 Rx 10 MG Furosemide [Lasix] 40 mg PO DAILY #30 tablet 09/27/15 08/28/16 08/11/16 09:00 Rx 40 MG Iron Carbonyl/Ascorbic Acid 1 each PO BID #60 tablet 09/27/15 08/11/16 08/11/16 09:00 Rx [Icar-C] 1 EACH Prednisone 10 mg PO DAILY #30 tablet 03/01/16 08/11/16 08/11/16 09:00 Rx 10 MG Insulin Glargine [Lantus] 30 unit SUBQ HS 08/11/16 08/28/16 08/10/16 20:00 History 20 UNITS Isosorbide Mononitrate E.r. [Imdur] 30 mg PO BID 08/28/16 08/28/16 Unknown History Lorazepam 1 mg PO BID PRN PRN 08/28/16 08/28/16 Unknown History Metoclopramide [Reglan] 10 mg PO DAILY 08/28/16 08/28/16 Unknown History Metoprolol Succinate E.r. [Toprol 50 mg PO DAILY 08/28/16 08/28/16 Unknown History Xl] Olmesartan Medoxomil [Benicar] 40 mg PO QAM 08/28/16 08/28/16 Unknown History Spironolactone 25 mg PO DAILY PRN PRN 08/28/16 08/28/16 Unknown History Pantoprazole [Protonix] 40 mg PO BID@0700,2100 #60 tablet 08/29/16 Unknown Rx Sucralfate [Carafate] 1 gm PO 4XDAY #120 tablet 08/29/16 Unknown Rx - History of Present Illness -Gen Adult Nature of Presenting Problems: 80 yo F presents to the ER with complaint of low blood sugar and weakness. PT denies any pain. Location of Pain/Injury: reports: none Pain Radiation: reports: no radiation Quality of Pain: reports: none Severity: reports: mild Onset/Duration: reports: just prior to arrival Timing: reports: still present Associated Symptoms: reports: weakness - Diabetes Related Context Context: reports: low blood sugar Review of Systems - Adult - REVIEW OF SYSTEMS - ADULT Constitutional: denies: chills, fever Cardiovascular: denies: chest pain, palpitations Respiratory: denies: cough, shortness of breath Gastrointestinal: denies: abdominal pain, nausea, vomiting Musculoskeletal: denies: back pain, neck pain Past History - Adult - PAST MEDICAL HISTORY-ADULT Review of Records: reports: Old Records Reviewed, Nursing Assessment Review, Medications Reviewed Major Childhood Illnesses: reports: denies history Cardiovascular: reports: CAD, CHF (last ECHO 08/10 with EF 55%), HTN, [place] Respiratory: reports: asthma, COPD, sleep apnea Gastrointestinal: reports: colitis (ulcerative), inflammatory bowel disease Obstetrical/Gynecological: reports: denies history Genitourinary: reports: denies history Musculoskeletal: reports: denies history Neurological: reports: CVA (right sided), stroke deficits (RIGHT SIDED) Psychiatric: reports: psychiatric problems Endocrine/Immune: reports: thyroid disorder, Diabetes Other Conditions: reports: cataract/glaucoma - PRIOR SURGERIES/PROCEDURES Surgical/Procedure History: reports: cardiac stent, hysterectomy, orthopedic ( extremity) (total knee replacement), other (breast biopsy, cataracts) - IMMUNIZATION STATUS Childhood Immunizations: See Nurse Assessment Flu Vaccine: See Nurse Assessment - FAMILY HISTORY Family History: reviewed, not pertinent Physical Exam-General - PHYSICAL EXAM-ADULT Initial Vital Signs Reviewed: Yes - CONSTITUTIONAL General Appearance: appears well, alert - NECK Neck: non-tender, full range of motion, supple - RESPIRATORY Respiratory: chest non-tender, lungs clear, normal breath sounds - CARDIOVASCULAR Cardiovascular: normal peripheral pulses, regular rate, rhythm - GASTROINTESTINAL (ABDOMEN) Abdominal Exam: normal bowel sounds, non tender, soft - MUSCULOSKELETAL Extremity: normal range of motion, non-tender - SKIN Integumentary: normal color, normal turgor Progress - PLAN OF CARE/RESULTS Result Diagrams: 09/06/16 01:10 09/06/16 01:10 - CONSULTS/PCP/HOSPITALIST Notification #1 *Consult/PCP/Hospitalist*: Dr. Lauri Time Discussed: 02:45 Reason/Comments: admission Consult Disposition: Admit Departure - Departure Date of Disposition Decision: 09/06/16 Time of Disposition Decision: 02:44 DIAGNOSIS: Hypoglycemia, Polypharmacy Failure to thrive Qualifiers: Failure to thrive age range: in adult Qualified Code(s): R62.7 - Adult failure to thrive Disposition: ADMITTED INPATIENT 09 Certified Medical Emergency: Emergent Condition: Good Referrals and Follow-Ups: None,PCP [Primary Care Provider] - - Critical Care Note This patient required my direct & personal management of CC.: No This chart was documented by the indicated scribe, (Speedy Maldonado, Scrreema) and accurately reflects the services I performed and decisions made by me, Epi Wagoner MD, as attested by the provider's signature.
== END 2016-09-09 14:30 ==
LOC: P.ED 00:20 → P.MEDSURG 02:51
PROVIDERS: ATTEND Family Medicine